=== PATIENT | male | born 1960 | race African-American/Black ===

== ENCOUNTER 2024-08-22 23:15 | Emergency (ER) | payer MEDICAID ==
[~2024-08-22] VITALS: Ht 198.1 cm; Wt 82.6 kg
[2024-08-23 00:03] LABS: Basophils # (auto) 0.1 10 ^3/uL (0-0.2); Basophils % (auto) 0.9 % (0.0-2.0); Eosinophils # (auto) 0.1 10 ^3/uL (0-0.8); Eosinophils % (auto) 0.9 % (0.0-7.0); Hematocrit 38.9 % (41.0-53.0); Hemoglobin 13.4 g/dL (13.5-17.5); Lymphocytes % (auto) 7.2 % (10.0-50.0); Mean Corpuscular Hemoglobin 31.1 pg (28.0-32.0); Mean Corpuscular Hgb Conc. 34.3 g/dL (32.0-36.0); Mean Corpuscular Volume 90.6 fL (80.0-100.0); Monocytes # (auto) 1.3 10 ^3/uL (0-1.3); Monocytes % (auto) 9.2 % (0.0-12.0); Neutrophils # (auto) 11.9 10 ^3/uL (1.6-8.6); Neutrophils % (auto) 81.8 % (37.0-80.0); Nucleated Red Blood Cells % 0.1 %; Platelet Count (auto) 305 10^3/uL (140-450); Red Cell Distribution Width 13.8 % (11.8-14.3); White Blood Cell 14.5 10^3/uL (4.4-10.8)
[2024-08-23] MEDS: IPRATROPIUM BROM 0.5 MG/2.5ML INH SOL NEB ONE (00:05)
[2024-08-23] MEDS: ALBUTEROL SULF 2.5 MG/0.5ML(0.5%) NEB SOLN NEB ONE (00:05)
[2024-08-23 00:15] VITALS: BP 133/85; PULSE 82; RESP 16; TEMP 100.1; O2SAT 99
[2024-08-23 00:16] LABS: Chloride 107 mmol/L (98-107); Potassium 3.6 mmol/L (3.5-5.1); Sodium 140 mmol/L (136-145)
[2024-08-23 00:17] LABS: Anion Gap 8 (5-15); Carbon Dioxide 25 mmol/L (20-31)
[2024-08-23 00:18] LABS: Calcium 9.6 mg/dL (8.7-10.4)
[2024-08-23] MEDS: DexAMETHasone SOD PHOS 10MG/1ML VIAL INJ IM ONE (00:20)
[2024-08-23 00:22] LABS: BUN/Creatinine Ratio 9.9 (10.0-20.0)
[2024-08-23 00:25] LABS: Rapid Influenza A Negative (Negative); Rapid Influenza B Negative (Negative)
[2024-08-23 00:26] LABS: COVID19 ANTIGEN SOFIA FIA NEGATIVE (NEGATIVE)
--- NOTE | 2024-08-23 00:28 | DVH ---
CHEST RADIOGRAPH Indication: Shortness of breath Technique: Single frontal view of the chest was obtained COMPARISON: None FINDINGS: Lines and Tubes: None Lungs: Mild bibasilar subsegmental atelectasis. The lungs are otherwise clear. Pleura: No effusion. No pneumothorax. Cardiomediastinal contours: Unremarkable Bones: Unremarkable IMPRESSION: Mild bibasilar subsegmental atelectasis.
[2024-08-23 00:35] LABS: Blood Urea Nitrogen 9 mg/dL (9-23); Glucose 112 mg/dL (74-106)
[2024-08-23] MEDS ORDERED: ACETAMINOPHEN 325 MG TAB PO ONE (00:45)
[2024-08-23] MEDS ORDERED: AZITHROMYCIN 250 MG TAB PO ONE (00:45)
[2024-08-23] MEDS ORDERED: DEXT60TA4 PO (00:50)
[2024-08-23] MEDS ORDERED: BENZ100C97 PO (00:50)
[2024-08-23] MEDS ORDERED: AZIT-185 PO (00:50)
[2024-08-23] MEDS ORDERED: ACET500T58 PO (00:50)
[2024-08-23] MEDS ORDERED: ALBU108A5 IN (00:50)
--- NOTE | 2024-08-23 00:50 | ED.PDOC ---
History of Present Illness HPI Comments This patient is a 64-year-old male who arrives the ED today for evaluation of cough, sore throat, chest congestion and general body aches off and on for several weeks. Patient denies any recent travel or new food sources. Patient states the symptoms came on and have abdomen flowed for several weeks until the past several days when it has been consistent. Patient denies any history of cardiac or pulmonary concerns. Patient states possible subjective fevers. Patient denies any nausea or vomiting. Vital signs were stable on arrival. Chief Complaint: Flu like Time Seen by MD: 23:21 Reviewed Notes: Nurses Notes Allergies: Coded Allergies: No Known Drug Allergy (Verified Allergy, Unknown, 08/23/24) Information Source: Patient Mode of Arrival: Ambulatory Severity: Moderate Timing: Weeks Duration: Intermittent Prehospital treatment: None Past Medical History PAST MEDICAL HISTORY: Denies Surgical History: Denies all surgeries Family History Family History: Reviewed,noncontributory to illness, No family hx of Cancer, No family hx of DM, No family hx of Heart sabine, No family hx of HTN, No family hx ofKidney sabine, No family hx of Liver sabine, No family hx of Lung sabine, No family hx of Stroke Social History Smoker: Cigarettes Alcohol: Denies ETOH Use Drugs: Denies Drug Use Lives In: Home Constitutional: reports: fever, weakness; denies: chills, diaphoresis, fatigue, malaise, sweats, others EENTM: denies: blurred vision, double vision, ear bleeding, ear discharge, ear drainage, ear pain, ear ringing, eye pain, eye redness, hearing loss, mouth pain, mouth swelling, nasal discharge, nose bleeding, nose congestion, nose pain, photophobia, tearing, throat pain, throat swelling, voice changes, others Respiratory: reports: cough, shortness of breath; denies: hemoptysis, orthopnea , SOB at rest, SOB with excertion, stridor, wheezing, others Cardiovascular: reports: chest pain; denies: dizzy spells, diaphoresis, Dyspnea on exertion, edema, irregular heart beat, left arm pain, lightheadedness, palpitations, PND, syncope, others Gastrointestinal: denies: abdomen distended, abdominal pain, blood streaked bowels, constipated, diarrhea, dysphagia, difficulty swallowing, hematemesis, melena, nausea, poor appetite, poor fluid intake, rectal bleeding, rectal pain, vomiting, others Genitourinary: denies: burning, dysuria, flank pain, frequency, hematuria, incontinence, penile discharge, penile sore, pain, testicle pain, testicle swelling, urgency, others Neurological: denies: dizziness, fainting, headache, left sided numbness, left sided weakness, numbness, paresthesia, pre-existing deficit, right sided numbness, right sided weakness, seizure, speech problems, tingling, tremors, weakness, others Musculoskeletal: denies: back pain, gout, joint pain, joint swelling, muscle pain, muscle stiffness, neck pain, others Integumetry: denies: bruises, change in color, change in hair/nails, dryness, laceration, lesions, lumps, rash, wounds, others Allergic/Immunocompromised: denies: Difficulty Healing, Frequent Infections, Hives, Itching, others Hematologic/Lymphatic: denies: anemia, blood clots, easy bleeding, easy bruising, swollen glands, others Endocrine: denies: excessive hunger, excessive sweating, excessive thirst, excessive urination, flushing, intolerance to cold, intolerance to heat, unexplained weight gain, unexplained weight loss, others Psychiatric: denies: anxiety, bipolar disorder, depression, hopeless, panic disorder, schizophrenia, sleepless, suicidal, others Physical Exam General Appearance: Moderate Distress (Patient appears as a moderately ill 64-year-old male.), Normal HEENT: Normal ENT Inspection, Pharynx Normal, TMs Normal Neck: Full Range of Motion, Non-Tender, Normal, Normal Inspection Respiratory: Other (Mild wheeze appreciated right middle lobe and right upper lobe. No accessory muscle use. No signs of respiratory distress.) Cardiovascular: No Edema, No JVD, No Murmur, No Gallop, Normal Peripheral Pulses, Regular Rate/Rhythm Breast Exam: Deferred Gastrointestinal: No Organomegaly, Non Tender, No Pulsatile Mass, Normal Bowel Sounds, Soft Genitalia: Deferred Pelvic: Deferred Rectal: Deferred Extremities: No calf tenderness, Normal capillary refill, Normal inspection, Normal range of motion, Non-tender, No pedal edema Neurologic: Alert, No Motor Deficits, Normal Affect, Normal Mood, No Sensory Deficits Cerebellar Function: Normal Reflexes: Normal Skin: Dry, Normal Color, Warm Lymphatic: No Adenopathy Was a procedure done? Was a procedure done?: No Differential Dx Considerations may include: Influenza a/B, COVID-19, sepsis, electrolyte abnormality, pneumonia, bronchitis, viral upper respiratory illness X-Ray, Labs, Meds, VS Vital Signs Date Time Temp Pulse Resp B/P (MAP) Pulse Ox O2 Delivery O2 Flow Rate FiO2 08/23/24 00:15 100.1 82 16 133/85 (101) 99 100.1 08/23/24 00:15 82 16 99 Room Air* 0 21 08/23/24 00:06 18 99 Room Air* 0 21 08/22/24 23:57 99.4 82 18 142/84 (103) 100 Lab Test 08/22/24 23:57 08/22/24 23:50 Range/Units Influenza Type A Antigen Negative Negative Influenza Type B Antigen Negative Negative SARS-CoV-2 Antigen (Rapid) Negative NEGATIVE White Blood Count 14.5 H 4.4-10.8 10^3/uL Red Blood Count 4.30 L 4.5-5.90 10^6/uL Hemoglobin 13.4 L 13.5-17.5 g/dL Hematocrit 38.9 L 41.0-53.0 % Mean Corpuscular Volume 90.6 80.0-100.0 fL Mean Corpuscular Hemoglobin 31.1 28.0-32.0 pg Mean Corpuscular Hemoglobin Concent 34.3 32.0-36.0 g/dL Red Cell Distribution Width 13.8 11.8-14.3 % Platelet Count 305 140-450 10^3/uL Mean Platelet Volume 8.1 6.9-10.8 fL Neutrophils (%) (Auto) 81.8 H 37.0-80.0 % Lymphocytes (%) (Auto) 7.2 L 10.0-50.0 % Monocytes (%) (Auto) 9.2 0.0-12.0 % Eosinophils (%) (Auto) 0.9 0.0-7.0 % Basophils (%) (Auto) 0.9 0.0-2.0 % Neutrophils # (Auto) 11.9 H 1.6-8.6 10 ^3/uL Lymphocytes # (Auto) 1.0 0.4-5.4 10 ^3/uL Monocytes # (Auto) 1.3 0-1.3 10 ^3/uL Eosinophils # (Auto) 0.1 0-0.8 10 ^3/uL Basophils # (Auto) 0.1 0-0.2 10 ^3/uL Nucleated Red Blood Cells 0.1 % Sodium Level 140 136-145 mmol/L Potassium Level 3.6 3.5-5.1 mmol/L Chloride Level 107 98-107 mmol/L Carbon Dioxide Level 25 20-31 mmol/L Anion Gap 8 5-15 Blood Urea Nitrogen 9 9-23 mg/dL Creatinine 0.91 0.700-1.30 mg/dL Glomerular Filtration Rate Calc 95 >90 mL/min BUN/Creatinine Ratio 9.9 L 10.0-20.0 Serum Glucose 112 H 74-106 mg/dL Calcium Level 9.6 8.7-10.4 mg/dL B-Type Natriuretic Peptide 46.62 0-100 pg/mL Current Medications Medications (Trade) Dose Ordered Sig/Altagracia Route Start Time Stop Time Status Last Admin Albuterol (Ventolin Medneb) 2.5 mg ONCE ONCE NEB 08/22/24 23:45 08/22/24 23:46 DC 08/23/24 00:05 Ipratropium Ty Ty (Atrovent Medneb) 0.5 mg ONCE ONCE NEB 08/22/24 23:45 08/22/24 23:46 DC 08/23/24 00:05 Dexamethasone Sodium Phosphate (Decadron Injection) 10 mg ONCE ONCE IM 08/22/24 23:45 08/22/24 23:46 DC 08/23/24 00:20 X-Ray, Labs, Meds, VS Comment All studies performed the ED were evaluated there will be personally. Swabs were unremarkable for any COVID or influenza. Serum laboratories revealed a mild leukocytosis, but otherwise unremarkable. Imaging studies were unremarkable for any definitive consolidation. Due to the length of time that the patient has been suffering from his cough and chest congestion concerns. I will treat him for possible bacterial component. Patient will receive his 1st dose of azithromycin tonight. Advised supplemental medication as needed. Time of 1ST Reevaluation: 00:47 Reevaluation 1ST: Improved Consultation: PCP Patient Education/Counseling: Diagnosis, Treatment Family Education/Counseling: Diagnosis, Treatment Departure 1 Departure Time of Disposition: 00:48 Impression: Primary Impression: Bronchitis Disposition: 01 HOME / SELF CARE / HOMELESS Condition: Stable Additional Instructions: Advised patient utilize antibiotics as directed until completion as well as additional medication as needed. If symptoms continue after medication utilization, follow up with primary care provider for continued evaluation and management. e-Prescriptions Albuterol Sulfate (Albuterol Sulfate Hfa) 108 Mcg/Act Aer 108 MCG IN Q4HP PRN, #1 AER Prov: AJ LOMBARDO [facility] 08/23/24 Acetaminophen (Acetaminophen) 500 Mg Tab 500 MG PO Q4HP PRN, #30 TAB Prov: AJ LOMBARDO [facility] 08/23/24 Benzonatate (Benzonatate) 100 Mg Cap 1 CAP PO Q8HP PRN, #20 CAP Prov: AJ LOMBARDO [facility] 08/23/24 Dextromethorphan-Guaifenesin (Mucinex Dm Maximum Streng) 1 Tab Tab 1 TAB PO BID, #20 TAB Prov: AJ LOMBARDO [facility] 08/23/24 Azithromycin (ZITHROMAX TABLET) 250 Mg Tb 250 MG PO DAILY for 4 Days, #4 TAB Prov: AJ LOMBARDO 08/23/24 Discharged With: Self, Friend Critical Care Note Critical Care Time?: No Stability Stability form required: No Heart Score Heart Score: Heart Score Response (Comments) Value History N/A 0 EKG N/A 0 Age N/A 0 Risk Factors N/A 0 Troponin N/A 0 Total [address] [facility] Aug 23, 2024 00:50
== END 2024-08-23 01:08 | disposition home or self-care (01) ==
LOC: ER 23:15
DX: J40 Bronchitis, not specified as acute or chronic (principal); F17.210 Nicotine dependence, cigarettes, uncomplicated; Z20.822 Contact with and (suspected) exposure to COVID-19
CPT/HCPCS: 36415; 71045; 80048; 83880; 85025; 87426; 87804; 94640; 96372; 99284; J1100

== ENCOUNTER 2025-04-30 20:41 | Emergency (ER) | payer MEDICAID ==
[~2025-04-30 20:41] MED LIST: ACET500T58 PO; ALBU108A5 IN; AZIT-185 PO; BENZ100C97 PO; DEXT60TA4 PO
--- NOTE | 2025-04-30 20:57 | ED.PDOC ---
GI ASSESSMENT HPI Comments 64-year-old male who denies past medical history was BIBA to the ER with a chief complaint of abdominal pain for the past month. Per EMS patient is abdominal pain, nausea and vomiting for the past month. Patient is alert and oriented x4, reports epigastric abdominal pain radiating to the chest, burning in nature, associated with food intake, nausea and vomiting, nonbloody for the past month which worsened over the past few hours. Denies diarrhea or constipation. Last bowel movement was earlier today. Per EMS, patient is vitally stable with blood pressure 160/100 mmHg, EKG in route was sinus rhythm. Past medical history: Denies Home medication: Denies Social history: Smokes methamphetamine 2 days prior, smokes cigarettes and marijuana, drinks occasionally, lives with Patient seen and examined in ER. Abdomen is soft, normoactive, tenderness to palpation on the epigastric region. Chief Complaint: Abdominal Pain Time Seen by MD: 20:43 Reviewed Notes: Nurses Notes Allergies: Coded Allergies: No Known Drug Allergy (Verified Allergy, Unknown, 08/23/24) Home Meds Active Scripts Lactulose (Lactulose) 10 Gm/15 Ml Roberta, 10 GM PO DAILY for 10 Days, #10 ML Prov:KETAN ESCOBAR RESIDENT 04/30/25 Pantoprazole Sodium Sesquihydr (Pantoprazole Sodium) 40 Mg Tab, 40 MG PO DAILY for 10 Days, #10 TAB Prov:KETAN ESCOBAR RESIDENT 04/30/25 Albuterol Sulfate (Albuterol Sulfate Hfa) 108 Mcg/Act Aer, 108 MCG IN Q4HP PRN, #1 AER Prov:AJ LOMBARDO [facility] 08/23/24 Acetaminophen (Acetaminophen) 500 Mg Tab, 500 MG PO Q4HP PRN, #30 TAB Prov:AJ LOMBARDO [facility] 08/23/24 Benzonatate (Benzonatate) 100 Mg Cap, 1 CAP PO Q8HP PRN, #20 CAP Prov:AJ LOMBARDO [facility] 08/23/24 Dextromethorphan-Guaifenesin (Mucinex Dm Maximum Streng) 1 Tab Tab, 1 TAB PO BID, #20 TAB Prov:AJ LOMBARDO [facility] 08/23/24 Azithromycin (ZITHROMAX TABLET) 250 Mg Tb, 250 MG PO DAILY for 4 Days, #4 TAB Prov:AJ LOMBARDO [facility] 08/23/24 Past Medical History PAST MEDICAL HISTORY: Denies Surgical History: Denies all surgeries Family History Family History: Reviewed,noncontributory to illness, No family hx of Cancer, No family hx of DM, No family hx of Heart sabine, No family hx of HTN, No family hx ofKidney sabine, No family hx of Liver sabine, No family hx of Lung sabine, No family hx of Stroke Social History Smoker: Cigarettes Alcohol: Denies ETOH Use Drugs: Denies Drug Use Lives In: Home Constitutional: reports: chills; denies: diaphoresis, fatigue, fever, malaise, sweats, weakness, others EENTM: denies: blurred vision, double vision, ear bleeding, ear discharge, ear drainage, ear pain, ear ringing, eye pain, eye redness, hearing loss, mouth pain, mouth swelling, nasal discharge, nose bleeding, nose congestion, nose pain, photophobia, tearing, throat pain, throat swelling, voice changes, others Respiratory: denies: cough, hemoptysis, orthopnea, SOB at rest, shortness of breath, SOB with excertion, stridor, wheezing, others Cardiovascular: denies: chest pain, dizzy spells, diaphoresis, Dyspnea on exertion, edema, irregular heart beat, left arm pain, lightheadedness, palpitations, PND, syncope, others Gastrointestinal: reports: abdominal pain, nausea, poor appetite, vomiting Genitourinary: denies: burning, dysuria, flank pain, frequency, hematuria, incontinence, penile discharge, penile sore, pain, testicle pain, testicle swelling, urgency, others Neurological: denies: dizziness, fainting, headache, left sided numbness, left sided weakness, numbness, paresthesia, pre-existing deficit, right sided numbness, right sided weakness, seizure, speech problems, tingling, tremors, weakness, others Musculoskeletal: denies: back pain, gout, joint pain, joint swelling, muscle pain, muscle stiffness, neck pain, others Integumetry: denies: bruises, change in color, change in hair/nails, dryness, laceration, lesions, lumps, rash, wounds, others Allergic/Immunocompromised: denies: Difficulty Healing, Frequent Infections, Hives, Itching, others Hematologic/Lymphatic: denies: anemia, blood clots, easy bleeding, easy bruising, swollen glands, others Endocrine: denies: excessive hunger, excessive sweating, excessive thirst, excessive urination, flushing, intolerance to cold, intolerance to heat, unexplained weight gain, unexplained weight loss, others Psychiatric: denies: anxiety, bipolar disorder, depression, hopeless, panic disorder, schizophrenia, sleepless, suicidal, others Physical Exam General Appearance: Mild Distress, Normal HEENT: NOT DONE Neck: NOT DONE Respiratory: Decreased Breath Sounds, No Accessory Muscle Use, No Respiratory Distress Cardiovascular: No Edema, No JVD, Regular Rate/Rhythm Breast Exam: Deferred Gastrointestinal: Epigastric, Normal Bowel Sounds, Tenderness Genitalia: Deferred Pelvic: Deferred Rectal: Deferred Extremities: Normal inspection, Non-tender, No pedal edema Neurologic: NOT DONE Cerebellar Function: NOT DONE Reflexes: NOT DONE Skin: Dry Lymphatic: NOT DONE Was a procedure done? Was a procedure done?: No GI differential Dx Differential Diagnosis: Gastritis/PUD, Gastroenteritis, Pancreatitis, Electrolyte Imbalance, Food Poisoning, Kidney Stone X-Ray, Labs, Meds, VS Vital Signs Date Time Temp Pulse Resp B/P (MAP) Pulse Ox O2 Delivery O2 Flow Rate FiO2 04/30/25 20:56 98.2 60 18 149/109 99 98.2 Lab Test 04/30/25 21:04 Range/Units White Blood Count 5.2 4.4-10.8 10^3/uL Red Blood Count 5.07 4.5-5.90 10^6/uL Hemoglobin 15.7 13.5-17.5 g/dL Hematocrit 46.3 41.0-53.0 % Mean Corpuscular Volume 91.3 80.0-100.0 fL Mean Corpuscular Hemoglobin 30.9 28.0-32.0 pg Mean Corpuscular Hemoglobin Concent 33.9 32.0-36.0 g/dL Red Cell Distribution Width 13.9 11.8-14.3 % Platelet Count 315 140-450 10^3/uL Mean Platelet Volume 8.3 6.9-10.8 fL Neutrophils (%) (Auto) 56.0 37.0-80.0 % Lymphocytes (%) (Auto) 32.0 10.0-50.0 % Monocytes (%) (Auto) 10.6 0.0-12.0 % Eosinophils (%) (Auto) 0.3 0.0-7.0 % Basophils (%) (Auto) 1.1 0.0-2.0 % Neutrophils # (Auto) 2.9 1.6-8.6 10 ^3/uL Lymphocytes # (Auto) 1.7 0.4-5.4 10 ^3/uL Monocytes # (Auto) 0.5 0-1.3 10 ^3/uL Eosinophils # (Auto) 0 0-0.8 10 ^3/uL Basophils # (Auto) 0.1 0-0.2 10 ^3/uL Nucleated Red Blood Cells 0.1 % Sodium Level 139 136-145 mmol/L Potassium Level 4.0 3.5-5.1 mmol/L Chloride Level 103 98-107 mmol/L Carbon Dioxide Level 28 20-31 mmol/L Anion Gap 8 5-15 Blood Urea Nitrogen 7 L 9-23 mg/dL Creatinine 1.05 0.700-1.30 mg/dL Glomerular Filtration Rate Calc 80 >90 mL/min BUN/Creatinine Ratio 6.7 L 10.0-20.0 Serum Glucose 88 74-106 mg/dL Lactic Acid Level 1.1 0.4-2.0 mmol/L Calcium Level 9.9 8.7-10.4 mg/dL Total Bilirubin 0.9 0.2-1.0 mg/dL Aspartate Amino Transferase (AST) 20 13-40 U/L Alanine Aminotransferase (ALT) 13 7-40 U/L Alkaline Phosphatase 99 46-116 U/L Total Protein 7.9 5.7-8.2 g/dL Albumin 4.7 3.2-4.8 g/dL Lipase 46 12-53 U/L Plasma/Serum Blood Alcohol < 3.0 <10 mg/dL Current Medications Medications (Trade) Dose Ordered Sig/Altagracia Route Start Time Stop Time Status Last Admin Sodium Chloride 1,000 ml @ 1,000 mls/hr Q1H ONCE IV 04/30/25 21:00 04/30/25 21:59 DC 04/30/25 22:51 X-Ray, Labs, Meds, VS Comment CT abdomen shows IMPRESSION: Limited assessment without intravenous or oral contrast, particularly the gastric contour. No gross free air however. If there is sufficient concern for gastric pathology a repeat study with intravenous and oral contrast would be beneficial. Fairly large volume of stool throughout the colon. Images Reviewed?: Images reviewed and evaluated by me Time of 1ST Reevaluation: 23:30 Reevaluation 1ST: Unchanged Consultation: PCP Patient Education/Counseling: Diagnosis, Treatment Family Education/Counseling: No Family Present SEPSIS Sepsis Screen Physician Orders Ct Ab Pel Wo Con-No Oral Or Iv (04/30/25 20:56) Urinalysis (04/30/25 20:57) Drug Screen (04/30/25 20:57) Vital Signs Date Time Temp Pulse Resp B/P (MAP) Pulse Ox O2 Delivery O2 Flow Rate FiO2 04/30/25 20:56 98.2 60 18 149/109 99 98.2 Laboratory Tests Test 04/30/25 21:04 Lactic Acid Level 1.1 mmol/L (0.4-2.0) White Blood Count 5.2 10^3/uL (4.4-10.8) Medications Medications Dose Ordered Sig/Altagracia Route Start Time Stop Time Status Last Admin Dose Admin Sodium Chloride 1,000 ml @ 1,000 mls/hr Q1H ONCE IV 04/30/25 21:00 04/30/25 21:59 DC 04/30/25 22:51 Departure 1 Departure Time of Disposition: 04:00 Impression: Primary Impression: Abdominal pain Additional Impression: Constipation by delayed colonic transit Disposition: HOME / SELF CARE / HOMELESS Condition: Fair Additional Instructions: MiraLax 1 g p.o. administered, along with pantoprazole 40 mg IV daily. 1 L NS administered bolus. Continue lactulose 30 mL daily as needed, target 1-2 bowel movements every day Pantoprazole 40 mg daily Please return to the ER in case of worsening symptoms, new symptoms, worsening abdominal pain, distention, blood in the stool or vomit, persistent vomiting or inability to pass bowel movement. Fever or chills. Follow up with primary care physician within the next 7 days Avoid smoking/drinking/methamphetamine use Continue full liquid diet, advanced slowly as tolerated Continued diet rich in vegetables, fruits, high-fiber diet, avoid red meat and fried fatty food e-Prescriptions Lactulose (Lactulose) 10 Gm/15 Ml Roberta 10 GM PO DAILY for 10 Days, #10 ML Prov: KETAN ESCOBAR RESIDENT 04/30/25 Pantoprazole Sodium Sesquihydr (Pantoprazole Sodium) 40 Mg Tab 40 MG PO DAILY for 10 Days, #10 TAB Prov: KETAN ESCOBAR RESIDENT 04/30/25 Critical Care Note Critical Care Time?: No Stability Stability form required: No KETAN ESCOBAR RESIDENT Apr 30, 2025 20:57
[2025-04-30 21:16] LABS: Hematocrit 46.3 % (41.0-53.0); Hemoglobin 15.7 g/dL (13.5-17.5); Mean Corpuscular Hemoglobin 30.9 pg (28.0-32.0); Mean Corpuscular Volume 91.3 fL (80.0-100.0); Nucleated Red Blood Cells % 0.1 %
[2025-04-30 21:31] LABS: Alanine Aminotransferase 13 U/L (7-40); Alkaline Phosphatase 99 U/L (46-116); Anion Gap 8 (5-15); BUN/Creatinine Ratio 6.7 (10.0-20.0); Calcium 9.9 mg/dL (8.7-10.4); Carbon Dioxide 28 mmol/L (20-31); Chloride 103 mmol/L (98-107); Glucose 88 mg/dL (74-106); Lipase 46 U/L (12-53); Potassium 4.0 mmol/L (3.5-5.1); Sodium 139 mmol/L (136-145); Total Protein 7.9 g/dL (5.7-8.2)
[2025-04-30 21:32] LABS: Albumin 4.7 g/dL (3.2-4.8); Bilirubin, Total 0.9 mg/dL (0.2-1.0)
[2025-04-30 21:41] LABS: Blood Urea Nitrogen 7 mg/dL (9-23)
--- NOTE | 2025-04-30 22:13 | DVH ---
Exam: CT CT AB PEL WO CON-NO ORAL OR IV History: epigastric abd pain Comparison Study: None Technique: Multidetector spiral CT of the abdomen was performed from lung bases to pubic symphysis. I maging was performed without IV contrast. Axial, coronal and sagittal multiplanar reformats were obta ined from the axial data set by the technologist. Radiation Dose : 1. Abdomen/Pelvis: CTDIvol 5.32 mGy, DLP 309.27 mGy*cm. Findings: Evaluation of solid organs is limited due to lack of intravenous contrast use. Lung Bases: No acute or significant lung base finding. Normal heart size. No pleural or pericardial effusion. Liver: The liver is normal in size. No focal lesions. Gallbladder and Biliary Tree: Unremarkable Spleen: Unremarkable Pancreas: The pancreas is grossly normal in appearance. Adrenal Glands: Unremarkable Kidneys: Bilateral renal cortical cysts. Bladder: Grossly unremarkable for degree of distention. Bowel: Gastric contour difficult to assess without intravenous or oral contrast. No free air. Gastric lumen poorly visualized. Fairly large volume of stool throughout the colon. Ascites: Absent Lymphadenopathy: No mesenteric, retroperitoneal or periportal lymphadenopathy. Abdominal Wall and Mesentery: Unremarkable. Vasculature: The visualized abdominal aorta is normal in size and caliber. Evaluation of abdominal a nd pelvic vessels is limited due to lack of intravenous contrast. Pelvic Organs: Unremarkable Musculoskeletal: No aggressive focal bony lesions, acute fractures or dislocation. IMPRESSION: Limited assessment without intravenous or oral contrast, particularly the gastric contour. No gross free air however. If there is sufficient concern for gastric pathology a repeat study with intravenous and oral contras t would be beneficial. Fairly large volume of stool throughout the colon. Radiation optimization: All CT scans at this facility use at least one of these dose optimization uyen hniques: automated exposure control mA and/or kV adjustment per patient size (includes targeted exam s where dose is matched to clinical indication) or iterative reconstruction.
[2025-04-30] MEDS: SODIUM CHLORIDE 0.9% 1,000 ML IV ONE (22:51)
[2025-04-30] MEDS ORDERED: PANT40T PO (23:26)
[2025-04-30] MEDS ORDERED: LACT10SO3 PO (23:26)
[2025-04-30 23:44] LABS: Urine Protein, UAD 1+ (Negative)
[2025-05-01 00:02] LABS: Amphetamine Screen, Urine Pos (NEGATIVE); Barbiturate Scree,Urine Neg (NEGATIVE); Benzodiazephine Screen, Urine Neg (NEGATIVE); Cannabinoid Screen, Urine Pos (NEGATIVE); Cocaine Screen, Urine Neg (NEGATIVE); Opiate Scree,Urine Neg (NEGATIVE); Phencyclidine Screen, Urine Neg (NEGATIVE)
[2025-05-01] MEDS: PANTOPRAZOLE 40 MG/10 ML VIAL INJ IV ONE (00:10)
[2025-05-01] MEDS: METOCLOPRAMIDE HCL 5MG/ml INJ 2ml VIAL IV ONE (00:10)
[2025-05-01] MEDS: POLYETHYLENE GLYCOL 17 GM PWDR PO ONE (00:11)
[2025-05-01] MEDS: GLYCERIN ADULT RECTAL SUPP PR ONE (04:11)
[2025-05-01 08:01] VITALS: BP 134/82; PULSE 62; RESP 18; TEMP 98.2; O2SAT 100
--- NOTE | 2025-05-02 09:41 | ECG ---
[facility] Test Date: 2025-04-30 Test Time: 21:11:14 Pat Name: JORDYN SAMSON Department: ED Room: Gender: M Refuse Laborer: talya : [id number] Requested By: KETAN ESCOBAR Order Number: [id number] Reading MD: Berry Hernandez Measurements Intervals [place] Rate: 59 P: 70 [place]: 159 QRS: -72 QRSD: 91 T: 49 QT: 412 QTc: 409 Interpretive Statements Sinus rhythm Left axis deviation RSR' in V1 or V2, probably normal variant Electronically Signed On 05-02-2025 17:02:44 PDT by Berry Hernandez Please click the below link to view image of tracing.
== END 2025-05-01 08:28 | disposition home or self-care (01) ==
LOC: EDUNIT# 20:41 → ER 20:41 → EDBD 20:41 → ER 05-01 08:28
DX: K59.01 Slow transit constipation (principal); R10.13 Epigastric pain; F17.210 Nicotine dependence, cigarettes, uncomplicated; F15.90 Other stimulant use, unspecified, uncomplicated; Z79.899 Other long term (current) drug therapy
CPT/HCPCS: 36415; 74176; 80053; 80307; 80320; 81001; 82947; 83605; 83690; 85025; 93005; 96361; 96374; 96375; 99285; J2470; J2765; J7030